=== PATIENT | female | born 1980 | race Caucasian/White ===

== ENCOUNTER → 2017-03-17 | Outpatient (CLI) | payer MEDICAID | LOC: CIMAGING 16:33 | PROVIDERS: ATTEND Internal Medicine | DX: E04.1 Nontoxic single thyroid nodule (principal); R59.0 Localized enlarged lymph nodes | CPT/HCPCS: 76536-PO ==

== ENCOUNTER → 2017-08-25 | Outpatient (CLI) | payer MEDICAID ==
[~2017-08-25] MED LIST: GADOBUTROL 10 ML VIAL IVP ONE
== END ==
LOC: FIMAGING 08-14 14:58
PROVIDERS: ATTEND Internal Medicine
DX: H47.099 Other disorders of optic nerve, not elsewhere classified, unspecified eye (principal)
CPT/HCPCS: A9585